=== PATIENT | female | born 1995 | race Caucasian/White ===

== ENCOUNTER 2021-03-03 14:55 | Emergency (ER) | payer BC ==
[~2021-03-03] VITALS: Ht 162.6 cm; Wt 55.3 kg
[2021-03-03 15:37] VITALS: BP 158/98
--- NOTE | 2021-03-03 17:07 | NUR ---
PATIENT LEFT WITHOUT BEING SEEN BY DR. KIRKPATRICK. NO FURTHER CARE PROVIDED FOR PATIENT.
[2021-03-03 21:46] LABS: APPEARANCE,URINE CLEAR (CLEAR); BILIRUBIN,URINE NEGATIVE (NEGATIVE); BLOOD, URINE TRACE-I (NEGATIVE); COLOR,URINE YELLOW (YELLOW); LEUKOCYTE ESTERASE ,URINE NEGATIVE (NEGATIVE); NITRITE, URINE NEGATIVE (NEGATIVE); PH,URINE 5.5 (5.0-9.0); UGLUCOSE NEGATIVE (NEGATIVE)
[2021-03-03 23:15] LABS: RBC,URINE 0-5 /HPF (0-5); WBC,URINE 0-5 /HPF (0-5)
== END 2021-03-03 17:07 | disposition left against medical advice (07) ==
LOC: MED 14:55
DX: K92.1 Melena (principal)
CPT/HCPCS: 81001; 87086; 99283

== ENCOUNTER 2021-03-03 20:48 | Emergency (ER) | payer BC ==
[~2021-03-03] VITALS: Ht 162.6 cm; Wt 54.4 kg
[2021-03-03 23:39] VITALS: BP 131/82
[2021-03-03] MEDS ORDERED: ACETAMINOPHEN 325 MG TAB PO ONE (23:40)
[2021-03-03] MEDS ORDERED: PANTOPRAZOLE 40 MG TABEC PO ONE (23:40)
--- NOTE | 2021-03-03 23:44 | NUR ---
PT AMBULATED TO LOBBY
[2021-03-04 00:01] LABS: BASOPHILS % (AUTO) 0.5 % (0.0-2.0); EOSINOPHILS # (AUTO) 0.3 K/uL (0-0.4); EOSINOPHILS % (AUTO) 2.8 % (0.0-4.0); HEMATOCRIT 37.3 % (36-48); HEMOGLOBIN 12.6 g/dL (12.0-16.0); LYMPHOCYTES # (AUTO) 1.8 K/uL (2.5-16.5); LYMPHOCYTES % (AUTO) 19.4 % (20.5-51.1); MEAN CORPUSCULAR HEMOGLOBIN 30 pg (27-31); MEAN CORPUSCULAR HGB CONC 34 g/dL (33-37); MEAN CORPUSCULAR VOLUME 88.3 fL (80-94); MONOCYTES # (AUTO) 0.5 K/uL (0.8-1.0); MONOCYTES % (AUTO) 5.9 % (1.7-9.3); NEUTROPHILS # (AUTO) 6.6 K/uL (1.8-7.7); NEUTROPHILS % (AUTO) 71.4 % (42.2-75.2); PLATELET COUNT (AUTO) 370 K/uL (140-450); RED BLOOD CELL COUNT(AUTO) 4.23 MIL/uL (4.20-5.40); RED CELL DISTRIBUTION WIDTH 13.1 % (11.6-13.7); WHITE BLOOD COUNT (AUTO) 9.2 K/uL (4.8-10.8)
[2021-03-04 00:20] LABS: PROTHROMBIN TIME 9.9 secs (10.8-13.4)
[2021-03-04 01:16] LABS: ALBUMIN 3.8 g/dL (3.4-5.0); ANION GAP 14.7 (8-16); CREATININE 0.6 mg/dL (0.6-1.3); POTASSIUM 3.7 mmol/L (3.5-5.1); TOTAL BILIRUBIN 0.3 mg/dL (0.0-1.0)
--- NOTE | 2021-03-04 02:33 | NUR ---
PT CLEARED FOR DISCHARGE AND UNABLE TO BE FOUND IN LOBBY OR OUTSIDE. CALLED ON PERSONAL PHONE AND WENT TO VOICEMAIL. PT LEFT WITHOUT D/C INSTRUCTIONS.
== END 2021-03-04 02:33 | disposition home or self-care (01) ==
LOC: MED 20:48
DX: K92.2 Gastrointestinal hemorrhage, unspecified (principal); Z98.890 Other specified postprocedural states
CPT/HCPCS: 36415; 74018; 80053; 81002; 81025; 83690; 85025; 85610; 85730; 86886; 86900; 86901; 99284